=== PATIENT | female | born 1970 | race African-American/Black ===

== ENCOUNTER 2018-09-02 21:22 | Emergency (ER) | payer MEDICAID, OTHER ==
[~2018-09-02] VITALS: Ht 165.1 cm; Wt 73.9 kg
[2018-09-02 23:06] LABS: Eosinophils # (auto) 0.2 uL; Hematocrit 36.5 % (36.0-46.0); Lymphocytes # (auto) 4.4 uL; Lymphocytes % (auto) 42.9 % (10.0-50.0); Neutrophils % (auto) 49.2 % (37.0-80.0); Nucleated Red Blood Cells % 0.2 %; Red Cell Distribution Width 17.8 % (11.8-14.3)
[2018-09-02 23:08] LABS: Basophils # (auto) 0 uL; Basophils % (auto) 0.4 % (0.0-2.0); Hemoglobin 12.4 g/dL (12.2-16.2); Mean Corpuscular Hemoglobin 26.5 pg (28.0-32.0); Mean Corpuscular Hgb Conc. 33.9 g/dL (32.0-36.0); Mean Corpuscular Volume 78.1 fL (80.0-100.0); Monocytes # (auto) 0.6 uL; Monocytes % (auto) 5.5 % (0.0-12.0); Platelet Count (auto) 249 10^3/uL (140-450); Red Blood Cells 4.67 10^6/uL (4.0-5.20); White Blood Cell 10.2 10^3/uL (4.4-10.8)
[2018-09-03 04:31] LABS: Albumin 4.6 g/dL (3.4-5.0); BUN/Creatinine Ratio 15.2; Bilirubin, Total 3.2 mg/dL (0.2-1.0); Calcium 9.7 mg/dL (8.5-10.1); Potassium 5.2 mmol/L (3.5-5.1); Total Protein 8.5 g/dL (6.4-8.2)
[2018-09-03 09:35] VITALS: BP 125/75
== END 2018-09-03 10:00 | disposition home or self-care (01) ==
LOC: ER 21:22
DX: K64.8 Other hemorrhoids (principal); G89.29 Other chronic pain; M54.9 Dorsalgia, unspecified
CPT/HCPCS: 36415; 74176; 80053; 85025

== ENCOUNTER 2020-01-02 13:52 | Inpatient (IN) | payer MEDICAID ==
[~2020-01-02] VITALS: Ht 165.1 cm; Wt 78.4 kg
[2020-01-02] MEDS ORDERED: ZINC SULFATE 220mg CAP or TAB PO ONE (15:45)
[2020-01-02] MEDS ORDERED: DOXYCYCLINE 100MG/250ML 250 ML IV ONE (15:45)
[2020-01-02] MEDS ORDERED: SODIUM CHLORIDE 0.9% 1,000 ML IV ONE (15:45)
[2020-01-02] MEDS ORDERED: ASCORBIC ACID 500 MG TAB PO ONE (15:45)
[2020-01-02 15:58] LABS: Basophils # (auto) 0 10 ^3/uL (0-0.2); Eosinophils # (auto) 0 10 ^3/uL (0-0.8); Monocytes # (auto) 0.2 10 ^3/uL (0-1.3); Neutrophils # (auto) 6.2 10 ^3/uL (1.6-8.6); Red Cell Distribution Width 17.7 % (11.8-14.3)
[2020-01-02 15:59] LABS: Basophils % (auto) 0.3 % (0.0-2.0); Hematocrit 31.7 % (36.0-46.0); Hemoglobin 10.8 g/dL (12.2-16.2); Lymphocytes # (auto) 1.6 10 ^3/uL (0.4-5.4); Lymphocytes % (auto) 19.7 % (10.0-50.0); Mean Corpuscular Hemoglobin 27.2 pg (28.0-32.0); Mean Corpuscular Hgb Conc. 34.2 g/dL (32.0-36.0); Mean Corpuscular Volume 79.5 fL (80.0-100.0); Monocytes % (auto) 2.6 % (0.0-12.0); Neutrophils % (auto) 77.4 % (37.0-80.0); Platelet Count (auto) 299 10^3/uL (140-450); Red Blood Cells 3.99 10^6/uL (4.0-5.20)
[2020-01-02 16:14] LABS: INR 0.97 (0.9-1.15); Partial Thromboplastin Time 25.6 sec (23.0-31.2)
[2020-01-02 16:16] LABS: Albumin 4.4 g/dL (3.4-5.0); Calcium 9.5 mg/dL (8.5-10.1); Magnesium 2.5 mg/dL (1.6-2.6); Potassium 4.1 mmol/L (3.5-5.1)
[2020-01-02 16:18] LABS: BUN/Creatinine Ratio 24.2
[2020-01-02 16:29] LABS: Bilirubin, Total 2.3 mg/dL (0.2-1.0); Total Protein 8.6 g/dL (6.4-8.2)
[2020-01-02 17:52] LABS: Urine Bacteria NONE SEEN /hpf (None Seen); Urine Blood Negative /uL (Negative); Urine Mucus FEW (None Seen); Urine Specific Gravity 1.033 (1.001-1.035); Urine WBC 4 /hpf (0 - 5)
[2020-01-02] MEDS ORDERED: DOCUSATE SOD 100 MG CAP PO PRN (20:30)
[2020-01-02] MEDS ORDERED: HYDROcodone-ACET 5/325MG TAB PO PRN (20:30)
[2020-01-02] MEDS ORDERED: LORazepam 0.5 MG TAB PO PRN (20:30)
[2020-01-02] MEDS ORDERED: MORPHINE SULF INJ 2 MG/ML SYRINGE 1ML IV PRN (20:30)
[2020-01-02] MEDS ORDERED: ONDANSETRON HCL 4 MG/2 ML VIAL IV PRN (20:30)
[2020-01-02] MEDS ORDERED: ACETAMINOPHEN 500 MG TAB PO PRN (20:30)
[2020-01-02] MEDS ORDERED: ACETAMINOPHEN 325 MG TAB PO PRN (20:30)
[2020-01-02] MEDS ORDERED: TEMAZEPAM 15 MG CAP PO PRN (20:30)
[2020-01-02] MEDS: SODIUM CHLORIDE 0.9% 1,000 ML IV SCH (21:08)
[2020-01-02] MEDS ORDERED: ONDANSETRON HCL 4 MG/2 ML VIAL IV ONE (21:30)
[2020-01-02] MEDS: ALBUTEROL SULF HFA 90MCG INH 200DOSE IN SCH (22:00)
[2020-01-02] MEDS: DOXYCYCLINE 100 MG TAB/CAP PO SCH (22:00)
[2020-01-02 23:32] LABS: CRP High Sensitivity 2.39 mg/dL (< 0.3)
[2020-01-03] VITALS (7 sets, daily range): BP systolic 111–115; BP diastolic 63–69
[2020-01-03] MEDS: ALBUTEROL SULF HFA 90MCG INH 200DOSE IN SCH ×3 (06:00→23:07)
[2020-01-03] MEDS: SODIUM CHLORIDE 0.9% 1,000 ML IV SCH ×2 (06:20→16:08)
--- NOTE | 2020-01-03 06:39 | NUR ---
Respiratory note: HR 76, RR 19, SPO2 97% ON RA. MDI HELD PENDING COVID RESULTS. NO SIGNS OR SYMPTOMS OF RESPIRATORY DISTRESS NOTED AT THIS TIME.
[2020-01-03] MEDS: DOXYCYCLINE 100 MG TAB/CAP PO SCH ×2 (08:07→22:49)
[2020-01-03 09:02] LABS: Basophils # (auto) 0 10 ^3/uL (0-0.2); Basophils % (auto) 0.4 % (0.0-2.0); Eosinophils # (auto) 0 10 ^3/uL (0-0.8); Eosinophils % (auto) 0.1 % (0.0-7.0); Hemoglobin 9.4 g/dL (12.2-16.2); Lymphocytes # (auto) 4.2 10 ^3/uL (0.4-5.4); Lymphocytes % (auto) 52.1 % (10.0-50.0); Mean Corpuscular Hemoglobin 27.8 pg (28.0-32.0); Mean Corpuscular Hgb Conc. 34.7 g/dL (32.0-36.0); Mean Corpuscular Volume 79.9 fL (80.0-100.0); Monocytes # (auto) 0.5 10 ^3/uL (0-1.3); Monocytes % (auto) 6.5 % (0.0-12.0); Neutrophils # (auto) 3.3 10 ^3/uL (1.6-8.6); Neutrophils % (auto) 40.9 % (37.0-80.0); Platelet Count (auto) 260 10^3/uL (140-450); Red Blood Cells 3.38 10^6/uL (4.0-5.20); Red Cell Distribution Width 17.6 % (11.8-14.3); White Blood Cell 8.1 10^3/uL (4.4-10.8)
[2020-01-03 09:10] LABS: Potassium 3.7 mmol/L (3.5-5.1)
[2020-01-03 09:19] LABS: Albumin 3.6 g/dL (3.4-5.0); BUN/Creatinine Ratio 20.3; Bilirubin, Total 1.7 mg/dL (0.2-1.0); Calcium 8.9 mg/dL (8.5-10.1); Magnesium 2.2 mg/dL (1.6-2.6); Total Protein 7.3 g/dL (6.4-8.2)
[2020-01-03] MEDS ORDERED: ZINC SULFATE 220mg CAP or TAB PO SCH (10:00)
[2020-01-03] MEDS ORDERED: ENOXAPARIN SOD 40 MG/0.4 ML SYRINGE SC SCH (10:00)
[2020-01-03] MEDS ORDERED: ASCORBIC ACID 1,000 MG TAB PO SCH (10:00)
--- NOTE | 2020-01-03 11:35 | NUR ---
RECEIVED REPORT FROM ER.
--- NOTE | 2020-01-03 11:45 | NUR ---
MS admit from ER MIGUE CHAMBERS admitted to tele/MS after SBAR received. Patient oriented to NHAN STEVENS, RN primary RN, unit, room, bed, and unit policies regarding patient care and visiting hours. Patient weighed by bedscale and encouraged to call if they need something. All questions and concerns addressed, patient verbalized understanding.
[2020-01-03] MEDS ORDERED: IOHEXOL 350 MG/ML 100ML IJ ONE (15:02)
[2020-01-03] MEDS ORDERED: ALBUAER3 IN (17:52)
[2020-01-03] MEDS ORDERED: ASCO10003 PO (17:52)
[2020-01-03] MEDS ORDERED: LEVO500T21 PO (17:52)
[2020-01-03] MEDS ORDERED: ZINC220T6 PO (17:52)
[2020-01-03] MEDS ORDERED: IPRIH IN (17:52)
--- NOTE | 2020-01-03 19:35 | NUR ---
Opening Shift Note Assumed care of patient, awake and alert. No S/S of distress/SOB or pain. Instructed on POC and to call for assist PRN, will continue to monitor for changes Q1hr and PRN.
[2020-01-03] MEDS ORDERED: DEX4T PO (21:27)
--- NOTE | 2020-01-03 21:30 | NUR ---
Dr. Jaime Sandoval ordered through the phone Decadron 6mg IV one time dose. Patient is ready for discharge due to CT angio results are negative.
[2020-01-03] MEDS ORDERED: DexAMETHasone SOD PHOS 10MG/1ML VIAL INJ IV ONE (21:45)
--- NOTE | 2020-01-03 22:00 | NUR ---
Patient aware Patient aware of discharge tonight.
--- NOTE | 2020-01-03 23:50 | NUR ---
Discharge Patient given discharge paperwork, IV taken out, and wheelchair down to main entrance. Patient [employer] by . No sign of pain or distress.
[2020-01-04] MEDS ORDERED: DexAMETHasone 4 MG TAB PO SCH (10:00)
--- NOTE | 2020-01-04 10:13 | NUR ---
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 No call or page on this patient. I called patient and informed her of home health order. Per patient she does not need home health. Patient has refused home health at this time. Addendum: 01/04/20 at 1515 by Elvira Monteiro Amended: Links added.
== END 2020-01-03 23:58 | disposition home health service (06) | DRG 137 ==
LOC: ER 13:52 → OVERFLOW 13:53 → EAST 01-03 11:45
PROVIDERS: ADMIT Hospitalist; ATTEND Internal Medicine
DX: U07.1 COVID-19 (principal); D50.8 Other iron deficiency anemias; J12.89 Other viral pneumonia; Z90.49 Acquired absence of other specified parts of digestive tract; Z90.710 Acquired absence of both cervix and uterus; Z82.49 Family history of ischemic heart disease and other diseases of the circulatory system; Z79.899 Other long term (current) drug therapy
CPT/HCPCS: 36415; 71045; 71275; 80053; 80061; 81001; 82728; 83036; 83605; 83615; 83735; 85025; 85379; 85610; 85730; 86141; 87040; 87426; 93970; 94640; 96365; 96366; 96372; 96375; G0378; J1100; J2405; J3490

== ENCOUNTER 2022-01-21 08:34 | Inpatient (IN) | payer MEDICAID ==
[~2022-01-21] VITALS: Ht 165.1 cm; Wt 78.4 kg
[~2022-01-21 08:34] MED LIST: ALBUAER3 IN; ASCO10003 PO; DEX4T PO; IPRIH IN; LEVO500T31 PO; ZINC220T6 PO
[2022-01-21 09:10] LABS: Urine Bacteria NONE SEEN /hpf (None Seen); Urine Blood 1+ /uL (Negative); Urine Mucus FEW (None Seen); Urine Specific Gravity 1.019 (1.001-1.035); Urine WBC 6 /hpf (0 - 5)
[2022-01-21 09:34] LABS: Basophils # (auto) 0.1 10 ^3/uL (0-0.2); Basophils % (auto) 0.7 % (0.0-2.0); Eosinophils # (auto) 0.1 10 ^3/uL (0-0.8); Eosinophils % (auto) 1.3 % (0.0-7.0); Hematocrit 34.7 % (36.0-46.0); Hemoglobin 11.9 g/dL (12.2-16.2); Lymphocytes # (auto) 3.4 10 ^3/uL (0.4-5.4); Lymphocytes % (auto) 31.6 % (10.0-50.0); Mean Corpuscular Hemoglobin 27.2 pg (28.0-32.0); Mean Corpuscular Hgb Conc. 34.3 g/dL (32.0-36.0); Mean Corpuscular Volume 79.5 fL (80.0-100.0); Monocytes # (auto) 0.6 10 ^3/uL (0-1.3); Monocytes % (auto) 5.8 % (0.0-12.0); Neutrophils # (auto) 6.5 10 ^3/uL (1.6-8.6); Neutrophils % (auto) 60.6 % (37.0-80.0); Nucleated Red Blood Cells % 0.2 %; Red Blood Cells 4.36 10^6/uL (4.0-5.20); Red Cell Distribution Width 17.8 % (11.8-14.3); White Blood Cell 10.7 10^3/uL (4.4-10.8)
[2022-01-21 09:38] LABS: Albumin 4.4 g/dL (3.4-5.0); Calcium 9.3 mg/dL (8.5-10.1); Magnesium 2.2 mg/dL (1.6-2.6); Potassium 3.9 mmol/L (3.5-5.1)
[2022-01-21 09:41] LABS: BUN/Creatinine Ratio 21.9; Bilirubin, Total 4.3 mg/dL (0.2-1.0); Total Protein 7.4 g/dL (6.4-8.2)
[2022-01-21] MEDS ORDERED: ONDANSETRON HCL 4 MG/2 ML VIAL IV ONE (10:00)
[2022-01-21] MEDS ORDERED: ASPirin 81 mg TAB PO ONE (10:00)
[2022-01-21] MEDS ORDERED: NITROGLYCERIN 0.4 MG SL TAB SL PRN (12:45)
[2022-01-21] MEDS ORDERED: HYDROcodone-ACET 5/325MG TAB PO PRN (12:45)
[2022-01-21] MEDS ORDERED: ACETAMINOPHEN 325 MG TAB PO PRN (12:45)
[2022-01-21] MEDS ORDERED: TEMAZEPAM 15 MG CAP PO PRN (12:45)
[2022-01-21] MEDS ORDERED: ONDANSETRON HCL 4 MG/2 ML VIAL IV PRN (12:45)
[2022-01-21] MEDS ORDERED: MORPHINE SULFATE INJ 2 MG/ml SYRG IV PRN (12:45)
[2022-01-21] MEDS ORDERED: DOCUSATE SOD 100 MG CAP PO PRN (12:45)
[2022-01-21] MEDS: MORPHINE SULFATE INJ 2 MG/ml SYRG IV PRN ×2 (16:41→21:26)
[2022-01-22 05:28] VITALS: BP 104/55
[2022-01-22 05:37] LABS: Basophils # (auto) 0.1 10 ^3/uL (0-0.2); Basophils % (auto) 0.7 % (0.0-2.0); Eosinophils # (auto) 0.2 10 ^3/uL (0-0.8); Eosinophils % (auto) 2.3 % (0.0-7.0); Hemoglobin 10.6 g/dL (12.2-16.2); Lymphocytes # (auto) 3.5 10 ^3/uL (0.4-5.4); Lymphocytes % (auto) 46.1 % (10.0-50.0); Mean Corpuscular Hemoglobin 27.9 pg (28.0-32.0); Mean Corpuscular Hgb Conc. 35.4 g/dL (32.0-36.0); Mean Corpuscular Volume 78.9 fL (80.0-100.0); Monocytes # (auto) 0.4 10 ^3/uL (0-1.3); Monocytes % (auto) 5.8 % (0.0-12.0); Neutrophils # (auto) 3.4 10 ^3/uL (1.6-8.6); Neutrophils % (auto) 45.1 % (37.0-80.0); Nucleated Red Blood Cells % 0.1 %; Red Cell Distribution Width 17.5 % (11.8-14.3); White Blood Cell 7.6 10^3/uL (4.4-10.8)
[2022-01-22 05:54] LABS: Albumin 3.4 g/dL (3.4-5.0); Potassium 4.2 mmol/L (3.5-5.1)
[2022-01-22 05:58] LABS: BUN/Creatinine Ratio 27.1; Bilirubin, Total 2.3 mg/dL (0.2-1.0); Total Protein 6.6 g/dL (6.4-8.2)
[2022-01-22 08:00] VITALS: BP 109/64
[2022-01-22 09:00] VITALS: BP 109/64
[2022-01-22] MEDS: PANTOPRAZOLE 40 MG TAB PO SCH (10:09)
[2022-01-22] MEDS: ENOXAPARIN SOD 40 MG/0.4 ML SYRINGE SC SCH (10:09)
[2022-01-22] MEDS: cefTRIAXone 1GM/50ML D5W 50 ML IV SCH (10:11)
[2022-01-22 13:00] VITALS: BP 116/69
[2022-01-22 16:22] VITALS: BP 116/59
[2022-01-22] MEDS: MORPHINE SULFATE INJ 2 MG/ml SYRG IV PRN (19:53)
[2022-01-22 22:00] VITALS: BP 108/61
[2022-01-23 05:00] VITALS: BP 98/66
[2022-01-23 05:36] LABS: Albumin 3.7 g/dL (3.4-5.0)
[2022-01-23 05:40] LABS: Bilirubin, Direct 0.4 mg/dL (0-0.2); Bilirubin, Total 2.5 mg/dL (0.2-1.0)
[2022-01-23] MEDS: MORPHINE SULFATE INJ 2 MG/ml SYRG IV PRN (07:24)
[2022-01-23 08:00] VITALS: BP 118/63
[2022-01-23 09:00] VITALS: BP 118/63
[2022-01-23] MEDS: cefTRIAXone 1GM/50ML D5W 50 ML IV SCH (09:28)
[2022-01-23] MEDS: PANTOPRAZOLE 40 MG TAB PO SCH (09:28)
[2022-01-23] MEDS: ENOXAPARIN SOD 40 MG/0.4 ML SYRINGE SC SCH (09:29)
[2022-01-23] MEDS ORDERED: OXYCODONE W/ ACETAMINOPHEN 5/325MG TABLET PO PRN (12:00)
[2022-01-23 13:00] VITALS: BP 106/61
[2022-01-23 16:39] VITALS: BP 106/61
== END 2022-01-23 18:34 | disposition home or self-care (01) | DRG 203 ==
LOC: ER 08:34 → TELE 12:35 → TELE-WESTW 23:15
PROVIDERS: ADMIT Nurse Practitioner; ATTEND Nurse Practitioner
DX: R07.89 Other chest pain (principal); E88.09 Other disorders of plasma-protein metabolism, not elsewhere classified; K80.50 Calculus of bile duct without cholangitis or cholecystitis without obstruction; N30.01 Acute cystitis with hematuria; M79.7 Fibromyalgia; Z20.822 Contact with and (suspected) exposure to COVID-19; Z82.49 Family history of ischemic heart disease and other diseases of the circulatory system; Z87.891 Personal history of nicotine dependence; Z90.710 Acquired absence of both cervix and uterus
CPT/HCPCS: 36415; 71045; 74181; 76705; 80053; 80061; 80076; 81001; 81025; 83735; 83880; 84484; 85025; 87086; 93005; 93306; 96374; G0378; J0696; J2405

== ENCOUNTER 2022-12-24 23:38 | Emergency (ER) | payer MEDICAID ==
[~2022-12-24] VITALS: Ht 165.1 cm; Wt 72.7 kg
[2022-12-25 00:03] VITALS: BP 112/71; PULSE 82; RESP 18; TEMP 98.4; O2SAT 100
[2022-12-25 00:30] LABS: Urine Bacteria NONE SEEN /hpf (None Seen); Urine Blood 3+ /uL (Negative); Urine Clarity HAZY (Clear); Urine Color Yellow (Yellow); Urine Mucus FEW (None Seen); Urine Protein, UAD TRACE (Negative); Urine Specific Gravity 1.019 (1.001-1.035); Urine WBC 17 /hpf (0 - 5)
[2022-12-25 00:43] LABS: Basophils # (auto) 0.1 10 ^3/uL (0-0.2); Basophils % (auto) 0.5 % (0.0-2.0); Eosinophils # (auto) 0.1 10 ^3/uL (0-0.8); Eosinophils % (auto) 0.9 % (0.0-7.0); Hematocrit 32.7 % (36.0-46.0); Hemoglobin 11.1 g/dL (12.2-16.2); Lymphocytes # (auto) 2.3 10 ^3/uL (0.4-5.4); Lymphocytes % (auto) 19.8 % (10.0-50.0); Mean Corpuscular Hemoglobin 27.4 pg (28.0-32.0); Mean Corpuscular Hgb Conc. 33.9 g/dL (32.0-36.0); Mean Corpuscular Volume 80.8 fL (80.0-100.0); Monocytes # (auto) 0.5 10 ^3/uL (0-1.3); Monocytes % (auto) 4.5 % (0.0-12.0); Neutrophils # (auto) 8.6 10 ^3/uL (1.6-8.6); Neutrophils % (auto) 74.3 % (37.0-80.0); Nucleated Red Blood Cells % 0.1 %; Red Blood Cells 4.04 10^6/uL (4.0-5.20); Red Cell Distribution Width 16.7 % (11.8-14.3); White Blood Cell 11.6 10^3/uL (4.4-10.8)
[2022-12-25 00:55] LABS: Albumin 4.2 g/dL (3.4-5.0); Calcium 9.3 mg/dL (8.5-10.1); Potassium 3.6 mmol/L (3.5-5.1)
[2022-12-25 00:57] LABS: Bilirubin, Total 3.7 mg/dL (0.2-1.0); Total Protein 7.5 g/dL (6.4-8.2)
[2022-12-25] MEDS ORDERED: PHEN-1045 PO (02:36)
[2022-12-25] MEDS ORDERED: ZOFR4T PO (02:36)
[2022-12-25] MEDS ORDERED: CIPR500T4 PO (02:36)
[2022-12-25] MEDS ORDERED: SODIUM CHLORIDE 0.9% 1,000 ML IV ONE (02:45)
[2022-12-25] MEDS ORDERED: cefTRIAXone SOD 1,000 MG VL IM ONE (02:45)
[2022-12-25] MEDS ORDERED: ONDANSETRON HCL 4 MG/2 ML VIAL IV ONE (02:45)
[2022-12-25] MEDS ORDERED: PHENAZOPYRIDINE HCL 100 MG TAB PO ONE (02:45)
== END 2022-12-25 04:07 | disposition home or self-care (01) ==
LOC: ER 23:38
DX: N39.0 Urinary tract infection, site not specified (principal); I88.0 Nonspecific mesenteric lymphadenitis; Z32.02 Encounter for pregnancy test, result negative; Z90.49 Acquired absence of other specified parts of digestive tract; Z90.710 Acquired absence of both cervix and uterus
CPT/HCPCS: 36415; 74176; 80053; 81001; 81025; 83690; 85025; 96361; 96372; 96374; 99285; J0696; J2405; J7030